=== PATIENT | male | born 1970 | race Caucasian/White ===

== ENCOUNTER 2016-12-06 21:43 | Emergency (ER) | payer OTHER ==
[~2016-12-06] VITALS: Ht 188 cm; Wt 85.8 kg
[2016-12-06 21:44] VITALS: BP 123/90
== END 2016-12-06 22:36 | disposition home or self-care (01) ==
LOC: ED 22:14
DX: L03.116 Cellulitis of left lower limb (principal); G40.909 Epilepsy, unspecified, not intractable, without status epilepticus
CPT/HCPCS: 99283

== ENCOUNTER 2017-06-02 20:02 | Emergency (ER) | payer OTHER ==
[~2017-06-02] VITALS: Ht 188 cm; Wt 87.4 kg
[2017-06-02] MEDS ORDERED: LEVE500T54 PO (20:43)
[2017-06-02] MEDS ORDERED: NAPR220C2 PO (20:43)
[2017-06-02] MEDS ORDERED: HYDROcodone/APAP 5/325 TABLET PO ONE (21:00)
[2017-06-02] MEDS ORDERED: HYDROcodone/APAP 5/325 TABLET ONE (21:04)
[2017-06-02 21:38] VITALS: BP 119/76
== END 2017-06-02 21:45 | disposition home or self-care (01) ==
LOC: ED 21:39
DX: S62.514A Nondisplaced fracture of proximal phalanx of right thumb, initial encounter for closed fracture (principal); W18.30XA Fall on same level, unspecified, initial encounter; Y93.89 Activity, other specified; Y92.488 Other paved roadways as the place of occurrence of the external cause; Y99.8 Other external cause status
CPT/HCPCS: 29125; 99284